=== PATIENT | male | born 1930 | race Caucasian/White ===

== ENCOUNTER 2018-06-10 13:51 | Emergency (ER) | payer SELFPAY ==
[~2018-06-10] VITALS: Ht 157.5 cm; Wt 85.0 kg
[2018-06-10 13:57] VITALS: BP 138/70; PULSE 69; RESP 20; Ht 157.5 cm; Wt 85.0 kg
== END 2018-06-10 21:36 | disposition left against medical advice (07) ==
LOC: FTE 13:51
DX: Z53.21 Procedure and treatment not carried out due to patient leaving prior to being seen by health care provider (principal)